=== PATIENT | male | born 1970 | race Caucasian/White ===

== ENCOUNTER 2023-05-10 13:36 | Outpatient (AMB) | payer MEDICARE, MEDICAID, SELFPAY ==
--- NOTE | 2023-05-10 14:13 | AM.OFFWIN_ITS ---
Intake Vital Signs 05/10/23 14:19 Height 5 ft 10 in Weight 178 lb BMI 25.5 BP 138/80 Blood Pressure Location Rt brachial Position Sitting Pulse 97 Pulse Source Pulse Oximeter Temp 97.8 F Temp Source Temporal Artery Scan Pulse Oximetry (%) 99 Intake Visit Reasons: EP, left ear blockage Intake Note: pt is here for c/o left ear blockage Patient Tobacco Use Status: Never used Tobacco Allergies No Known Allergies Allergy (Verified 05/10/23 14:19) Do you need a note to return to daycare/school/sports/work: Yes HPI HPI Comments History of Present Illness Details This is a 52-year-old male presenting for evaluation of a blockage in his left ear that has been present for the past 2-3 days. Patient has used Q- tips only without relief of his symptoms. Patient denies decreased hearing bilaterally, right ear discomfort or a sore throat. PFSH Social History Patient Tobacco Use Status: Never used Tobacco Review of Systems Const All systems reviewed & are unremarkable except as noted in HPI and below Eyes Reports no additional complaints ENT Reports as per HPI Musc Reports no additional complaints Neuro Reports no additional complaints Psych Reports no additional complaints Endo Reports no additional complaints Arturo/Lymph Reports no additional complaints Physical Exam Vital Signs: Last Vital Signs Temp 97.8 F 05/10/23 14:19 Pulse 97 05/10/23 14:19 BP 138/80 05/10/23 14:19 Pulse Ox 99 05/10/23 14:19 BMI result Body Mass Index 25.5 Const General: cooperative, healthy appearing, comfortable and no acute distress Nutritional Appearance: average body habitus Orientation/consciousness: patient oriented x3 Limitations: no limitations HEENT Head: Yes normal to inspection Ears: hearing grossly normal bilaterally, external ears normal, TM normal on the right, TM normal on the left (cerumen impaction) and unable to visualize TM on the left (cerumen) General nose exam: Normal external nose present Face and sinus: Yes normal facial exam Mouth: Normal oral and palatal mucosa present and oropharynx normal Throat: Yes posterior oropharynx normal Eyes Conjunctivae: conjunctivae normal Sclerae: sclerae normal Neuro General: patient oriented x3 Psych Appearance: grossly normal Mental Status: mental status grossly normal Insight: Good insight present (Psych) Judgement: Good judgement present (Psych) Office Procedures Cerumen Removal From which ear canal was the cerumen removed: left Removal: irrigation and otoscope w/curette Notes: patient tolerated procedure well and no complications [id number] Wax Removal by Spoon/Curette Assessment & Plan Assessment & Plan (1) Impacted cerumen of left ear: Code(s): H61.22 - Impacted cerumen, left ear Plan: Cerumen successfully removed from left ear canal; no further intervention warranted at this time. Coding Level of Care Code New Pt Level 4 (21755) Diagnoses Impacted cerumen of left ear H61.22 CPT Codes Office Procedure - CPT: 45723-Hbo Wax Removal by Spoon/Curette ([id number]) Time Spent (min) 25
[2023-05-10 14:19] VITALS: BP 138/80; PULSE 97; TEMP 36.6; O2SAT 99; BMI 25.5
== END 2023-05-10 16:25 | disposition home or self-care (01) ==
PROVIDERS: Visit Provider Physician Assistant
DX: H61.22 Impacted cerumen, left ear (principal)
CPT/HCPCS: 69210; 99204